=== PATIENT | male | born 1975 | race African-American/Black ===

== ENCOUNTER 2017-06-19 12:26 | Inpatient (IN) | payer OTHER ==
[~2017-06-19] VITALS: Ht 160 cm; Wt 65.8 kg
[2017-06-19 13:36] LABS: HEMATOCRIT 41.2 % (38.0-50.0); HEMOGLOBIN 14.7 G/DL (12.5-16.6); MCH 31.5 PG (29.0-34.0); MCHC 35.7 G/DL (30.0-36.0); MCV 88.2 FL (86-99); PLATELET COUNT 244 K/uL (156-360); RBC DIS.WIDTH-CV 13.5 % (11.8-14.6); RBC DIS.WIDTH-SD 43.8 % (39-53); RED BLOOD COUNT 4.67 M/uL (4.00-5.50)
[2017-06-19 14:44] LABS: CHLORIDE 104 mEq/L (99-109); SODIUM 134 mEq/L (136-147)
[2017-06-19 14:46] LABS: GLUCOSE 95 mg/dL (70-99)
[2017-06-19 14:50] LABS: GFR ESTIMATE (CALCULATED) > 59 mL/min/ (58.99-99999); UREA NITROGEN (BUN) 14 mg/dL (9-23)
[2017-06-19 16:30] VITALS: BP 130/71
[2017-06-19 20:49] VITALS: BP 126/75
[2017-06-19 23:55] VITALS: BP 124/70
[2017-06-20 03:45] VITALS: BP 131/75
[2017-06-20 05:44] LABS: HEMATOCRIT 42.5 % (38.0-50.0); HEMOGLOBIN 14.6 G/DL (12.5-16.6); MCH 31.1 PG (29.0-34.0); MCHC 34.4 G/DL (30.0-36.0); MCV 90.6 FL (86-99); PLATELET COUNT 227 K/uL (156-360); RBC DIS.WIDTH-CV 13.7 % (11.8-14.6); RBC DIS.WIDTH-SD 45.7 % (39-53); RED BLOOD COUNT 4.69 M/uL (4.00-5.50); WHITE BLOOD COUNT 5.6 K/uL (4.1-10.2)
[2017-06-20 08:23] VITALS: BP 132/74
[2017-06-20 11:37] VITALS: BP 136/78
[2017-06-20 16:04] VITALS: BP 152/81
[2017-06-21 00:01] VITALS: BP 137/84
[2017-06-21 08:17] VITALS: BP 131/76
[2017-06-21] MEDS ORDERED: BACTROBAN OINTM22 GM TP (10:29)
[2017-06-21] MEDS ORDERED: AUGMENTIN875 MG PO (10:29)
[2017-06-21 15:24] VITALS: BP 166/70
== END 2017-06-21 15:45 | DRG 603 ==
LOC: EME 12:26 → EDOF 14:35 → 3EAST 14:35 → ENRESERV 14:39 → 3EAST 16:10
PROVIDERS: Emergency Medicine; Internal Medicine
DX: L02.511 Cutaneous abscess of right hand (principal); L03.113 Cellulitis of right upper limb; S61.212A Laceration without foreign body of right middle finger without damage to nail, initial encounter; Y04.1XXA Assault by human bite, initial encounter; Y04.0XXA Assault by unarmed brawl or fight, initial encounter; I10 Essential (primary) hypertension; Y92.149 Unspecified place in prison as the place of occurrence of the external cause; Z87.891 Personal history of nicotine dependence
CPT/HCPCS: 73130; 80048; 83605; 85027; 87040; 87070; 87075; 87205; 99281; 99285; J0295; J1650; J3370; J7030; J7050; S0039